=== PATIENT | male | born 1950 | race Caucasian/White ===

== ENCOUNTER 2019-10-11 16:44 | Emergency (ER) | payer OTHER ==
[~2019-10-11] VITALS: Ht 165.1 cm; Wt 80.3 kg
[2019-10-11 16:49] VITALS: Ht 165.1 cm; Wt 80.3 kg
[2019-10-11 17:59] LABS: BASOPHIL % 0.2 % (0-2); RED CELL DISTRIBUTION WIDTH 14.1 % (11.5-14.5)
[2019-10-11 18:00] LABS: PLATELET COUNT 129 x10^3mcL (130-400)
[2019-10-11 18:15] LABS: CALCIUM 7.9 mg/dL (8.5-10.1); CARBON DIOXIDE 29.2 mmol/L (21-32); CREATININE SERUM 1.6 mg/dL (0.7-1.3); POTASSIUM SERUM 3.9 mmol/L (3.5-5.1)
[2019-10-11 18:20] LABS: ALBUMIN 3.2 g/dL (3.4-5.0); BILIRUBIN TOTAL 0.5 mg/dL (0.20-1.00); C REACTIVE PROTEIN 14.8 mg/dL (<=0.9); TOTAL PROTEIN, SERUM 7.4 g/dL (6.4-8.2)
[2019-10-11 19:18] VITALS: BP 119/64
== END 2019-10-11 19:18 | disposition left against medical advice (07) ==
LOC: ED 16:44
PROVIDERS: Emergency Medicine
DX: J44.9 Chronic obstructive pulmonary disease, unspecified (principal); I10 Essential (primary) hypertension
CPT/HCPCS: 36600; 83880; 87804; J7512; Q0092

== ENCOUNTER 2019-10-11 20:32 | Emergency (ER) | payer OTHER, SELFPAY ==
[~2019-10-11] VITALS: Ht 165.1 cm; Wt 79.4 kg
[2019-10-11 20:35] VITALS: Ht 165.1 cm; Wt 79.4 kg
[2019-10-11 22:23] VITALS: BP 116/68
== END 2019-10-11 22:23 | disposition home or self-care (01) ==
LOC: ED 20:32
DX: B34.9 Viral infection, unspecified (principal); I10 Essential (primary) hypertension